=== PATIENT | female | born 1975 | race Caucasian/White ===

== ENCOUNTER 2020-09-24 12:25 | Emergency (ER) | payer OTHER, SELFPAY ==
--- NOTE | ~2020-09-24 | XR_ITS ---
EXAMINATION: XR chest 2V EXAM DATE: 09/24/2020 12:50 INDICATION: Cough for 2 weeks. TECHNIQUE: Frontal and lateral projections of the chest obtained and reviewed. Comparison is made to prior examination from 09/27/2018. FINDINGS: The lungs are clear. There are no pleural effusions. The cardiomediastinal silhouette is within normal limits. There is no pneumothorax suspected. The bones and soft tissues are unremarkab le. IMPRESSION: No acute cardiopulmonary findings. Reviewed, dictated and finalized at location B.
[2020-09-24 12:41] VITALS: BP 155/113; PULSE 91; RESP 16; TEMP 37; O2SAT 100
[2020-09-24 12:47] VITALS: BP 172/112; PULSE 91; RESP 16; TEMP 37; O2SAT 100
--- NOTE | 2020-09-24 12:55 | ED.URI ---
HPI - URI/Sore Throat General Chief Complaint: Upper Respiratory Infection Stated Complaint: Headache,Cough Source: patient and RN notes reviewed Limitations: no limitations History of Present Illness HPI Narrative: The ovary patient, a non-smoker/nondrinker, presents with cough. Patient states she has about a 2-week history of nonproductive cough associated with myalgias including headache. No fever, S OB, wheezing, CP, loss of taste/smell; She was vaccinated mid-July [with [employer]]. Symptoms are mild, worse at nighttime. Vital signs remarkable for elevated blood pressure Related Data Allergies Allergy/AdvReac Type Severity Reaction Status Date / Time Penicillins Allergy Unknown RASH Verified 09/24/20 12:47 Review of Systems Review of Systems: Narrative: The patient has been informed that they may have pre-hypertension or Hypertension based on a BP reading in the department. I recommend that the patient call the primary care provider listed on their discharge instructions or a physician of their choice this week to arrange follow up for further evaluation of possible pre-hypertension or Hypertension General/Constitutional: No weight loss,fever Eyes: N0: Redness,discharge Ears/Nose/Throat: No: Epistaxis,ear discharge Respiratory: Denies: Hemoptysis Gastrointestinal: No Vomiting, Bleeding-rectal Skin: No Lumps, eruption Neurologic: No Focal Weakness,Sz Hematologic: Denies: Petechiae/Purpura Psychiatric: No: Suicida ideationl All Other Systems: Reviewed and Negative PMFSH Comments At time of signature, agree with nursing past medical, surgical, social and family history. There is no relevant family history pertinent to the presenting complaint Exam Narrative: Exam Narrative: General Appearance: Well appearing, Well nourished EYE: PERRLA, Conjunctiva clear Ears: Auditory canal normal, TM normal Nose: Rhinorrhea, Mucousal erythema Mouth/Throat: MM moist, Uvula midline, Pharyngeal erythema Neck: Supple, No adenopathy Respiratory: No respiratory distress, Breath sounds equal, Clear to auscultation Cardiovascular: RRR, No JVD Musculoskeletal: Non tender, Normal strength Skin: Warm, Dry Neurological: A&O x3, CN II-XII intact Psychiatric: Normal mood, Normal affect t Course Vital Signs Vital signs: Vital Signs Temperature 98.6 F 09/24/20 12:41 Pulse Rate 91 09/24/20 12:41 Respiratory Rate 16 09/24/20 12:41 Blood Pressure 155/113 H 09/24/20 12:41 Pulse Oximetry 100 09/24/20 12:41 Temperature 98.6 F 09/24/20 12:47 Pulse Rate 91 09/24/20 12:47 Respiratory Rate 16 09/24/20 12:47 Blood Pressure 172/112 H 09/24/20 12:47 Pulse Oximetry 100 09/24/20 12:47 Discharge Plan Discharge Clinical Impression: Labile hypertension Upper respiratory infection Qualifiers: URI type: unspecified URI Qualified Code(s): J06.9 - Acute upper respiratory infection, unspecified Patient Disposition: Home, Self-Care Condition: Stable Instructions: Antibiotic Form, Acute Bronchitis (ED) Prescriptions: New codeine-guaifenesin 10-100 mg/5 mL liquid 7.5 ml PO Q6H PRN (Reason: cough) Qty: 118 RF: 0 prednisone 20 mg tablet 60 mg PO DAILY Qty: 9 RF: 0 benzonatate [Tessalon Perles] 100 mg capsule 100 mg PO TID Qty: 20 RF: 1 azithromycin 250 mg tablet See Rx Instructions .ROUTE .COMPLEX Qty: 6 RF: 0 Follow-up/Referrals: UNKNOWN,DOCTOR [Primary Care Provider] - Stand Alone Forms: Work/School Release IP
[2020-09-25 14:27] LABS: SARS-CoV-2 RNA PCR Negative
== END 2020-09-24 13:32 | disposition home or self-care (01) ==
PROVIDERS: Emergency Provider Emergency Medicine
DX: R03.0 Elevated blood-pressure reading, without diagnosis of hypertension (principal); J06.9 Acute upper respiratory infection, unspecified; Z20.822 Contact with and (suspected) exposure to COVID-19
CPT/HCPCS: 71046; 99213; C9803; G0463; U0003; U0005